=== PATIENT | male | born 1970 | race Caucasian/White ===

== ENCOUNTER → 2017-10-14 10:27 | Outpatient (CLI) | payer BC, SELFPAY ==
[2017-10-14 13:18] LABS: Absolute Lymphocyte Count 1.46 X10^3/ul (0.83-4.51); Absolute Neutrophil Count 3.1 X10^3/uL (2.0-7.7); Basophil# 0.04 X10^3/uL; Basophil% 0.7 % (0-1); Eosinophils% 8.8 % (0-5); Hematocrit 42.1 % (40-54); Hemoglobin 14.3 g/dl (13.0-16.5); Lymphocyte # 1.46 X10^3/ul (4.0); Lymphocyte % 25.7 % (19-41); Mean Corpuscular Hgb 31.6 pg (27.0-32.0); Mean Corpuscular Volume 93.1 fL (80-94); Mean Platelet Vol. 9.5 fl (6.2-12.0); Monocyte# 0.58 X10^3/uL; Monocyte% 10.2 % (0-10); Neutrophil # 3.09 X10^3/uL (2.7-7.7); Neutrophil % 54.4 % (47-70); Platelet Count 280 K/mm3 (150-450); RBC Distribution Width CV 12.8 % (11.6-14.6); RBC Distribution Width SD 43.1 fl (35.1-43.9); Red Blood Count 4.52 M/mm3 (4.6-6.2); White Blood Count 5.7 K/mm3 (4.4-11.0)
[2017-10-14 13:19] LABS: POSITIVE COUNT NO; POSITIVE DIFFERENTIAL NO; POSITIVE MORPHOLOGY NO
[2017-10-14 13:24] LABS: AST(SGOT) 38 U/L (15-37); Alanine Aminotransfer ALT/SGPT 40 U/L (16-61); Albumin, Serum 3.7 g/dL (3.2-5.0); Alkaline Phosphatase 97 U/L (45-117); Anion Gap 6 (5-15); BUN 12 mg/dL (7-18); BUN/Creat Ratio 13.8 RATIO (10-20); Calcium,Total 8.8 mg/dL (8.5-10.1); Chloride 111 mmol/L (98-107); Cholesterol 202 mg/dL (200); Creatinine, Serum 0.87 mg/dL (0.70-1.30); EST Glomerular Filtration Rate 100 mL/min (>60); Est Glom Filt Rate - Afr Amer 121 mL/min (>60); Globulin 3.7 g/dL (2.2-4.2); Glucose 99 mg/dL (74-106); High Density Lipoprotein 56 mg/dL; Potassium 4.1 mmol/L (3.5-5.1); Protein, Total 7.4 g/dL (6.4-8.2); Sodium Level 142 mmol/L (136-145); Triglycerides 149 mg/dL; Very Low Density Lipoprotein 30 mg/dL (5-40)
== END ==
PROVIDERS: Visit Provider Family Medicine
DX: Z00.00 Encounter for general adult medical examination without abnormal findings (principal)
CPT/HCPCS: 36415; 80053; 80061; 85025

== ENCOUNTER 2018-05-09 20:54 | Emergency (ER) | payer BC, SELFPAY ==
[2018-05-09 20:56] VITALS: BP 138/71; PULSE 81; RESP 20; TEMP 36.9; O2SAT 96; BMI 25.2
[2018-05-09] MEDS: DiphenhydrAMINE 50 MG/ML Syringe 25 MG IV (21:11)
[2018-05-09] MEDS: MethylPREDNISolone 125 MG/2 ML Vial IV (21:11)
[2018-05-09] MEDS: 0.9% Normal Saline 1,000 ML 1000 ML IV (21:11)
[2018-05-09] MEDS: Ipratropium/Albuterol Sulfate 3 ML AMPUL.NEB INHALATION (21:11)
[2018-05-09 21:21] VITALS: PULSE 62; RESP 16
[2018-05-09 21:32] LABS: Anion Gap 11 (5-15); BUN 16 mg/dL (7-18); BUN/Creat Ratio 14.5 RATIO (10-20); Calcium,Total 8.3 mg/dL (8.5-10.1); Chloride 106 mmol/L (98-107); EST Glomerular Filtration Rate 76 mL/min (>60); Est Glom Filt Rate - Afr Amer 92 mL/min (>60); Estimated Creatinine Clearance 95.48 ml/min; Glucose 143 mg/dL (74-106); Potassium 3.7 mmol/L (3.5-5.1); Sodium Level 140 mmol/L (136-145)
[2018-05-09 21:36] LABS: Absolute Lymphocyte Count 3.34 X10^3/ul (0.83-4.51); Absolute Neutrophil Count 4.1 X10^3/uL (2.0-7.7); Basophil# 0.02 X10^3/uL; Basophil% 0.2 % (0-1); Eosinophil# 0.31 X10^3/uL; Eosinophils% 3.6 % (0-5); Hematocrit 44.4 % (40-54); Hemoglobin 15.2 g/dl (13.0-16.5); Lymphocyte # 3.34 X10^3/ul (4.0); Lymphocyte % 39.2 % (19-41); Mean Corp Hgb Conc 34.2 g/gl (32-36); Mean Corpuscular Hgb 31.6 pg (27.0-32.0); Mean Corpuscular Volume 92.3 fL (80-94); Monocyte# 0.74 X10^3/uL; Monocyte% 8.7 % (0-10); Neutrophil # 4.09 X10^3/uL (2.7-7.7); Neutrophil % 48.2 % (47-70); POSITIVE COUNT NO; POSITIVE DIFFERENTIAL NO; POSITIVE MORPHOLOGY NO; Platelet Count 264 K/mm3 (150-450); RBC Distribution Width CV 12.5 % (11.6-14.6); RBC Distribution Width SD 42.3 fl (35.1-43.9); Red Blood Count 4.81 M/mm3 (4.6-6.2); White Blood Count 8.5 K/mm3 (4.4-11.0)
[2018-05-09 21:39] VITALS: BP 130/78; PULSE 63; RESP 17; O2SAT 99
--- NOTE | 2018-05-09 22:42 | ED.DCSUM_ITS ---
- ER Visit Summary Date of Service: 05/09/18 Chief Complaint: Allergic reaction History of Present Illness: The patient is a 47 M with an allergic reaction that started about 1-1-1/2 hours prior to arrival. The patient thinks he was exposed to some type of flavored water and this caused his symptoms. He reports some heart palpitations and flushing. Mild shortness of breath. He had similar symptoms in the past after using an energy drink. No other significant medical history. No history of anaphylaxis or shock. Physical Examination: Afebrile and vital signs unremarkable. No definite urticaria or rash, but he has diffuse flushing. HEENT exam unremarkable. Airway is clear. Mild wheezing with expiration, worse on the right side. Abdomen soft and nontender. Extremities nontender with no edema. Alert and oriented. No acute distress. Test Results: EKG shows sinus rhythm at a rate of 66. Chest x-ray showed no acute findings. CBC, BMP, and troponin unremarkable. Emergency Department Course and Treatment: Patient presents concerned for an allergic reaction. I was initially not sure if this was an allergic reaction. The timing was a little bit delayed and his rash was more like a diffuse flushing. He had some mild wheezing, but otherwise no significant symptoms. He was treated with Benadryl, Solu-Medrol, Pepcid, and a DuoNeb. His workup was unremarkable. On reevaluation, the symptoms have resolved. His lungs are clear. No rash or flushing noted. No trouble breathing. No palpitations. Patient is appropriate for outpatient care. I advised him that his symptoms can return. He should avoid further exposures. Will prescribe a course of Benadryl, Pepcid, and prednisone. EpiPen's. Follow-up with primary care. Treatment Plan: As above Disposition: Discharged Impression: 1. Allergic reaction This note was generated with [employer] dictation software. It may contain incorrect words, spelling, and punctuation that were not noted in review of the chart prior to signing ED Disposition - Plan for ED Patient: Chief Complaint: Allergic Reaction Referrals: Zoila Romo DO [Primary Care Provider] -
--- NOTE | 2018-05-09 22:42 | ED.DEP ---
ED Disposition - Plan for ED Patient: Chief Complaint: Allergic Reaction Instructions: ED Allergic Reaction General Other Prescriptions: Epinephrine [Epi Pen] 0.3 mg IM X1 #2 syringe Prednisone 60 mg PO DAILY 4 Days #24 tab Famotidine [Pepcid] 20 mg PO BID #8 tab DiphenhydrAMINE [Benadryl] 25 mg PO TID 4 Days #12 cap Referrals: Zoila Romo DO [Primary Care Provider] -
[2018-05-09 22:56] VITALS: BP 130/77; PULSE 66; RESP 13; O2SAT 96
== END 2018-05-09 22:58 | disposition home or self-care (01) ==
LOC: ED 21:39
PROVIDERS: Emergency Provider Emergency Medicine; Family Provider Family Medicine; PCP Family Medicine
DX: T78.40XA Allergy, unspecified, initial encounter (principal); X58.XXXA Exposure to other specified factors, initial encounter; R00.2 Palpitations; R06.02 Shortness of breath
CPT/HCPCS: 71045; 80048; 84484; 85025; 93005; 94640; 96365; 96375; 99285; J7030; A4216; J3490

== ENCOUNTER → 2018-06-26 12:04 | Outpatient (CLI) | payer BC, SELFPAY ==
[2018-06-30 14:07] LABS: Testosterone, Free 9.02 ng/dL (5.00-21.00)
[2018-07-01 14:30] LABS: Testosterone, Total 376 ng/dL (264-916)
== END ==
PROVIDERS: Family Provider Family Medicine; PCP Family Medicine; Visit Provider Family Medicine
DX: E29.1 Testicular hypofunction (principal)
CPT/HCPCS: 36415; 84402; 84403

== ENCOUNTER → 2020-03-02 10:10 | Outpatient (CLI) | payer BC, SELFPAY ==
[2020-03-02 12:40] LABS: Absolute Lymphocyte Count 1.74 X10^3/uL (0.83-4.51); Absolute Neutrophil Count 3.4 X10^3/uL (2.0-7.7); Basophil# 0.06 X10^3/uL; Eosinophil# 0.48 X10^3/uL; Eosinophils% 7.6 % (0-5); Hematocrit 41.5 % (40-54); Hemoglobin 14.1 g/dL (13.0-16.5); Lymphocyte # 1.74 X10^3/ul (4.0); Lymphocyte % 27.6 % (19-41); Mean Corpuscular Hgb 31.5 pg (27.0-32.0); Mean Corpuscular Volume 92.8 fL (80-94); Mean Platelet Vol. 9.4 fl (6.2-12.0); Monocyte# 0.65 X10^3/uL; Monocyte% 10.3 % (0-10); NRBC Flagged by Analyzer 0 % (0-5); Neutrophil # 3.35 X10^3/uL (2.7-7.7); Neutrophil % 53.2 % (47-70); Platelet Count 272 K/mm3 (150-450); RBC Distribution Width CV 12.4 % (11.6-14.6); RBC Distribution Width SD 42.3 fl (35.1-43.9); Red Blood Count 4.47 M/mm3 (4.6-6.2); White Blood Count 6.3 K/mm3 (4.4-11.0)
[2020-03-02 16:34] LABS: ALB/GLOB Ratio 0.9 RATIO (0.9-2.4); AST(SGOT) 40 U/L (15-37); Alanine Aminotransfer ALT/SGPT 42 U/L (16-61); Albumin, Serum 3.7 g/dL (3.2-5.0); Alkaline Phosphatase 83 U/L (45-117); Anion Gap 6 (5-15); BUN 16 mg/dL (7-18); BUN/Creat Ratio 18.3 RATIO (10-20); Calcium,Total 9.2 mg/dL (8.5-10.1); Chloride 108 mmol/L (98-107); Cholesterol 234 mg/dL (200); Creatinine, Serum 0.87 mg/dL (0.70-1.30); EST Glomerular Filtration Rate 98 mL/min (>60); Est Glom Filt Rate - Afr Amer 119 mL/min (>60); Globulin 3.9 g/dL (2.2-4.2); Glucose 90 mg/dL (74-106); High Density Lipoprotein 57 mg/dL; PSA,Total - Annual Screen 1.58 ng/mL (0.00-4.00); Potassium 4.3 mmol/L (3.5-5.1); Protein, Total 7.6 g/dL (6.4-8.2); Sodium Level 139 mmol/L (136-145); Triglycerides 185 mg/dL; Very Low Density Lipoprotein 37 mg/dL (5-40)
== END ==
PROVIDERS: PCP Family Medicine; Visit Provider Family Medicine
DX: R53.83 Other fatigue (principal); Z13.220 Encounter for screening for lipoid disorders; Z12.5 Encounter for screening for malignant neoplasm of prostate
CPT/HCPCS: 36415; 80053; 80061; 84153; 85025; G0103